=== PATIENT | female | born 1945 | race Caucasian/White ===

== ENCOUNTER → 2025-05-20 | Outpatient (CLI) | payer MEDICARE ==
[2025-05-20 12:41] LABS: CREATININE 1.4 mg/dL (0.5-1.0); GLOMERULAR FILTR. RATE CALC 39.0 mL/min (>90); UREA NITROGEN, BLOOD 25.0 mg/dL (7-18)
== END | disposition home or self-care (01) ==
LOC: LAB 11:46
PROVIDERS: ATTEND Internal Medicine Cardiovascular Disease
DX: R06.09 Other forms of dyspnea (principal)
CPT/HCPCS: 36415; 82565; 84520

== ENCOUNTER → 2025-05-24 | Outpatient (CLI) | payer MEDICARE ==
[~2025-05-24] MED LIST: IOHEXOL-350 75 ML VIAL IV ONE
--- NOTE | 2025-05-24 14:17 | HMCIMG ---
EXAM: CTA Chest with Intravenous Contrast CLINICAL HISTORY: 79-year-old female referred for evaluation of dyspnea. TECHNIQUE: Axial CTA images of the chest with intravenous contrast. Three-dimensional MIP/volume rendered reformations were performed. Dose reduction technique was used including one or more of the following: automated exposure control, adjustment of mA and kV according to patient size, and/or iterative reconstruction. CONTRAST: Standard dose of intravenous contrast administered. COMPARISON: None provided. FINDINGS: PULMONARY ARTERIES: There is no intraluminal filling defect suspicious for PE. AORTA: No thoracic aortic aneurysm or dissection. LUNGS: Mild fibrotic changes of the lobes, areas of scarring, and atelectasis with pulmonary fibrotic changes bilateral upper lobe and lower lobes. A left lower lobe pulmonary nodule is seen measuring 7.4 mm in diameter (images 35 of 51); no prior to compare. Follow up on CT chest at 12 months if the patient is high risk. PLEURAL SPACES: No pleural effusion. No pneumothorax. HEART AND MEDIASTINUM: No cardiomegaly. No significant pericardial effusion. Neurostimulator lead wires in the mid thoracic spinal canal are seen. LYMPH NODES: No lymphadenopathy. BONES: Fixation hardware in the lumbar spine is seen. No acute fracture. CHEST WALL AND UPPER ABDOMEN: Images through the upper abdomen are unremarkable. The chest wall is unremarkable. IMPRESSION: 1. No evidence of pulmonary embolism. 2. Mild fibrotic changes in the bilateral upper and lower lobes. 3. Left lower lobe pulmonary nodule measuring 7.4 mm in diameter; no prior for comparison. Recommend follow-up CT chest at 12 months if the patient is high risk. /[place]
== END | disposition home or self-care (01) ==
LOC: RAH 08:46
PROVIDERS: ATTEND Internal Medicine Cardiovascular Disease
DX: R91.1 Solitary pulmonary nodule (principal); J84.10 Pulmonary fibrosis, unspecified; J98.11 Atelectasis; J98.4 Other disorders of lung; R06.09 Other forms of dyspnea
CPT/HCPCS: 71275; Q9967